=== PATIENT | female | born 1995 | race African-American/Black ===

== ENCOUNTER 2018-04-06 18:37 | Inpatient (IN) ==
[2018-04-06] MEDS ORDERED: ONDANSETRON 4 MG/2 ML VIAL IV PRN (19:00)
[2018-04-06] MEDS ORDERED: LACTATED RINGERS 1,000 ML IV SCH ×2 (19:00→23:45)
[2018-04-06] MEDS ORDERED: BUTORPHANOL 2 MG/ML VIAL IV PRN (19:00)
[2018-04-06] MEDS ORDERED: diphenhydrAMINE 50 MG/1 ML VIAL IV PRN ×2 (19:01)
[2018-04-06] MEDS ORDERED: FAMOTIDINE 20 MG/2 ML VIAL IV ONE (19:01)
[2018-04-06] MEDS ORDERED: ePHEDrine 50 MG/ML AMP IV PRN (19:01)
[2018-04-06] MEDS ORDERED: hydrOXYzine HCL 25 MG/1 ML VIAL IM PRN (19:01)
[2018-04-06] MEDS ORDERED: PROMETHAZINE 25 MG/1 ML VIAL IM ONE (19:01)
[2018-04-06] MEDS ORDERED: CITRIC ACID/SODIUM CITRATE 30 ML UDCUP PO ONE (19:01)
[2018-04-06] MEDS ORDERED: ONDANSETRON 4 MG/2 ML VIAL IV ONE (19:01)
[2018-04-06] MEDS ORDERED: LACTATED RINGERS 1,000 ML IV ONE (19:01)
[2018-04-06] MEDS ORDERED: AMPICILLIN INJ 2,000 MG in SODIUM CHLORIDE 0.9% 100 ML IV ONE (19:03)
[2018-04-06 19:16] LABS: Basophils % 0.1 % (0.0-0.8); Eosinophils % 0.3 % (0.00-10.9); Hematocrit 25.1 VOL% (35.7-47.0); Hemoglobin 8.2 GM/DL (12.0-16.0); Immature Granulocytes % 0.3 %; Immature Granulocytes Absolute 0.02 #; Lymphocytes % 26.7 % (21.3-54.2); Mean Corpuscular HGB Conc 32.7 GM/DL (32-36); Mean Corpuscular Hemoglobin 27 PG (27-34); Mean Corpuscular Volume 81.8 FL (87-102); Mean Platelet Volume 9.9 FL (9.6-12.0); Monocytes # 0.5 10*3/uL (0.11-0.8); Monocytes % 6.1 % (1.7-12.7); Neutrophils % 66.5 % (38.7-73.9); Platelet Count 256 T/CUMM (130-400); Red Blood Count 3.07 MC/CUMM (3.8-5.5); Red Cell Distribution Width 14.5 % (9.3-17.3); White Blood Count 7.5 T/CUMM (4-12)
[2018-04-06] MEDS ORDERED: fentaNYL 2 MCG/ROPIV 0.2% EPID 150 ML EPIDURAL SCH (19:30)
[2018-04-06 19:35] LABS: Albumin 2.6 G/DL (3.4-5.0); Bilirubin,Total 0.7 MG/DL (0.2-1.0); Calcium 8.2 MG/DL (8.5-10.1); Osmolality,Calculated 268.8 MOS/KG (273-304); Potassium 3.1 MMOL/L (3.5-5.1); Total Protein 7.4 G/DL (6.4-8.3)
[2018-04-06] MEDS ORDERED: OXYTOCIN/LR 20 UNIT/1,000 ML BAG IV ONE (20:05)
[2018-04-06 20:47] LABS: Apearance,Urine CLEAR (Clear); Bilirubin,Urine Negative (Negative); Blood, Urine Negative (Negative); Glucose,Urine (UA) Negative (Negative); Ketones,Urine Negative (Negative); Mucus,Urine Occasional /LPF (Occasional); Nitrite,Urine Negative (Negative); Protein,Urine Negative; RBC,Urine 2 /HPF (0-4); Squamous Epithelial Cell,Urine Occasional /HPF (0-10); Urine Color Yellow (Yellow); Urine Specific Gravity 1.012 (1.001-1.035); WBC,Urine 1 /HPF (0-6)
[2018-04-06 20:59] LABS: Barbiturates Screen,Urine Negative (Negative); Benzodiazepines Screen,Urine Negative (Negative); Cannabinoid Screen,Urine Negative (Negative); Opiate Screen,Urine Negative (Negative); Phencyclidine Screen,Urine Negative (Negative)
[2018-04-06] MEDS ORDERED: METHYLERGONOVINE 0.2 MG/1 ML AMP ONE (21:56)
[2018-04-06] MEDS ORDERED: miSOPROStol 200 MCG TABLET ONE (21:56)
[2018-04-06] MEDS ORDERED: CARBOPROST TROMETHAMINE 250 MCG/ML AMP IM ONE (21:57)
[2018-04-06] MEDS ORDERED: AMPICILLIN INJ 1,000 MG in SODIUM CHLORIDE 0.9% 100 ML IV SCH (23:30)
[2018-04-06 23:57] LABS: Cord Venous Blood HCO3 23.5 MMOL/L; Cord Venous Blood PCO2 37.9 MMHG; Cord Venous Blood PO2 40.8 MMHG
[2018-04-06] MEDS ORDERED: BISACODYL 10 MG SUPP RECTAL PRN (23:57)
[2018-04-06] MEDS ORDERED: ACETAMINOPHEN 325 MG TABLET PO PRN (23:57)
[2018-04-06] MEDS ORDERED: MAGNESIUM HYDROXIDE SUSP 30 ML UDCUP PO PRN (23:57)
[2018-04-07] MEDS: IBUPROFEN 800 MG TABLET PO PRN ×3 (00:07→15:18)
[2018-04-07] MEDS: FERROUS SULFATE 325 MG TABLET PO SCH ×4 (01:00→17:33)
[2018-04-07] MEDS ORDERED: ACETAMINOPHEN/CODEINE 300-30 MG TABLET PO PRN (01:47)
[2018-04-07 04:26] LABS: Basophils % 0.1 % (0.0-0.8); Eosinophils % 0.2 % (0.00-10.9); Hematocrit 24.4 VOL% (35.7-47.0); Hemoglobin 7.9 GM/DL (12.0-16.0); Immature Granulocytes % 0.4 %; Immature Granulocytes Absolute 0.04 #; Lymphocytes # 2.3 10*3/uL (1.4-4.0); Lymphocytes % 23.5 % (21.3-54.2); Mean Corpuscular HGB Conc 32.4 GM/DL (32-36); Mean Corpuscular Hemoglobin 27 PG (27-34); Mean Corpuscular Volume 81.9 FL (87-102); Monocytes # 0.8 10*3/uL (0.11-0.8); Monocytes % 7.7 % (1.7-12.7); Neutrophils # 6.8 10*3/uL (1.4-7.4); Neutrophils % 68.1 % (38.7-73.9); Platelet Count 249 T/CUMM (130-400); Red Blood Count 2.98 MC/CUMM (3.8-5.5); Red Cell Distribution Width 14.2 % (9.3-17.3); White Blood Count 9.9 T/CUMM (4-12)
[2018-04-07 04:56] LABS: Hypochromasia 1+; Platelet Estimate Adequate
[2018-04-07] MEDS: DOCUSATE SODIUM 100 MG CAPSULE PO SCH ×2 (08:47→21:58)
[2018-04-07] MEDS: SIMETHICONE CHEW 80 MG TABLET PO PRN ×2 (09:51→18:33)
[2018-04-07] MEDS ORDERED: FERROUS SULFATE 325 MG TABLET PO SCH (23:38)
[2018-04-08] MEDS: IBUPROFEN 800 MG TABLET PO PRN ×2 (01:43→12:17)
[2018-04-08] MEDS: DOCUSATE SODIUM 100 MG CAPSULE PO SCH (08:39)
[2018-04-08] MEDS: FERROUS SULFATE 325 MG TABLET PO SCH (08:40)
[2018-04-08 12:40] VITALS: BP 107/69
== END 2018-04-08 13:45 | disposition home or self-care (01) | DRG 560 ==
LOC: N.LDOUT 18:37 → N.LD 18:39 → N.OB 04-07 01:35
PROVIDERS: ADMIT Obstetrics & Gynecology; ATTEND Obstetrics & Gynecology